=== PATIENT | female | born 1985 | race Caucasian/White ===

== ENCOUNTER 2017-06-14 17:34 | Observation (INO) ==
[2017-06-14 18:34] LABS: Basophils # 0.1 K/mcL (0.0-0.2); Basophils % 0.6 %; Hematocrit 43.6 % (35.3-44.9); Hemoglobin 14.4 g/dL (11.5-15.4); Immature Granulocytes % 0.6 % (0-4); Lymphocytes # 3.4 K/mcL (0.6-4.6); Lymphocytes % 40.6 %; Mean Corpuscular Hemoglobin 25.8 pg (28.0-33.3); Mean Corpuscular Volume 78.1 fL (83.0-100.0); Mean Platelet Volume 7.7 fL (9.4-12.4); Monocytes # 0.6 K/mcL (0.0-1.3); Monocytes % 7.2 %; Neutrophils # 4.2 K/mcL (1.6-8.9); Platelet Count 389 K/mcL (140-400); Red Blood Count 5.58 M/mcL (3.82-4.97); Red Cell Distribution Width 16.1 % (11.5-14.5)
--- NOTE | 2017-06-14 18:42 | Emergency Department Note ---
START Narrative - START START: This documentation is done with the assistance of Dragon dictation. Despite efforts made to ensure accuracy, there may be inaccuracies in superannuation clerk or spelling and typographical errors. Patient seen on initial evaluation with alteration in mental status. From this coming her said that patient's family parents over a year ago and patient could not remember that today. She denies any current drug use no trauma no strokelike symptoms. Were negative workup and then signed out to the evening ER physician for further management and evaluation.
[2017-06-14 18:56] LABS: Acetaminophen 12 mcg/mL (10-20); Alanine Aminotransferase 14 Units/L (7-52); Albumin 4.6 g/dL (3.5-5.7); Albumin/Globulin Ratio 1.6 (1.1-2.2); Alkaline Phosphatase 67 Units/L (34-104); Aspartate Amino Transferase 12 Units/L (13-39); BUN/Creatinine Ratio 12 (6-26); Bilirubin,Total 0.4 mg/dL (0.3-1.0); Blood Urea Nitrogen 10 mg/dL (6-20); Calcium 9.4 mg/dL (8.6-10.3); Carbon Dioxide 25 mEq/L (23-29); Chloride 103 mEq/L (98-107); Ethanol < 10 mg/dL (Less than 10); Globulin 2.8 g/dL (2.4-3.5); Glucose 138 mg/dL (70-105); Osmolality,Calculated 285 (280-300); Potassium 3.4 mEq/L (3.5-5.1); Salicylate < 2.5 mg/dL (15.0-30.0); Sodium 137 mEq/L (136-145); Total Protein 7.4 g/dL (6.4-8.9); eGFR For African Americans > 60 (> 60); eGFR For Non-African Americans > 60 (> 60)
--- NOTE | 2017-06-14 20:10 | Emergency Department Note ---
Disposition Clinical Impression: Weakness generalized Altered mental status Qualifiers: Altered mental status type: transient alteration of awareness Qualified Code(s) : R40.4 - Transient alteration of awareness Disposition: Admitted As Inpatient Condition: Good Time of Disposition: 23:10 General Adult HPI - General Chief complaint: ED Altered Mental Status Stated complaint: "lightheaded", ams Time Seen by Provider: 06/14/17 19:32 Source: patient Mode of arrival: ambulatory Limitations: altered mental status Nursing Notes Reviewed: Yes Vital Signs Reviewed: Yes - History of Present Illness HPI Narrative: 32-year-old female with significant past medical history of hypertension, depression, migraines presenting to the emergency department with chief complaint of altered mental status. According to the patient she has been feeling weak and off balance for the past week. She went to urgent care and was told she had fluid in her ears and given a prescription for amoxicillin. She states she still has not been feeling better. The past few days she got acutely worse with severe dizziness and weakness. She is also altered according to family member at bedside. Today she spoke to her family member and asked where her mother and father were even though her parents have been for over a year. Patient does state she feels dizzy and unsteady on her feet. She denies any fever, sick contacts, chest pain or shortness of breath. Pain Scale: 2 - Related Data Home Medications Medication Instructions Recorded Confirmed Cetirizine HCl [Zyrtec] 10 mg PO DAILY PRN 06/10/17 06/14/17 LORazepam [Ativan] 0.5 mg PO DAILY PRN 06/10/17 06/14/17 Losartan/Hydrochlorothiazide 1 each PO DAILY 06/10/17 06/14/17 [Losartan-Hctz 50-12.5 mg Tab] Quetiapine Fumarate [SEROquel] 100 mg PO DAILY 06/10/17 06/14/17 SUMAtriptan succinate [Imitrex] 50 mg PO PRN PRN MDD take one at 06/10/17 onset of migraine amLODIPine [Norvasc] 5 mg PO DAILY 06/10/17 06/14/17 Amitriptyline [Elavil] 25 mg PO HS 06/14/17 06/14/17 Amoxicillin [Amoxicillin] 875 mg PO BID 06/14/17 06/14/17 Ropinirole HCl [Requip] 2 mg PO HS 06/14/17 06/14/17 Sitagliptin Phosphate [Januvia] 50 mg PO DAILY 06/14/17 06/14/17 lamoTRIgine [Lamotrigine] 150 mg PO BID 06/14/17 06/14/17 Previous Rx's Medication Instructions Recorded Meclizine HCl [Verticalm] 25 mg PO TID PRN #30 tablet 06/10/17 Allergies Allergy/AdvReac Type Severity Reaction Status Date / Time No Known Allergies Allergy Verified 06/14/17 21:50 All systems ED: reviewed and negative except as stated. Neurological: Reports: weakness, confusion, vertigo Past Medical History - Past Medical History Attestation: Yes The following information was validated with the patient. 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 Absent: scleral icterus, conjunctival injection - ENT ENT exam: normal exam, mucous membranes moist - Neck Neck exam: Present: normal inspection, full ROM. Absent: tenderness, meningismus - Chest Chest inspection: Present: normal inspection, symmetric chest wall rise. Absent : tenderness, rash - Respiratory Respiratory exam: Present: normal lung sounds bilaterally. Absent: respiratory distress, wheezes - Cardiovascular Cardiovascular exam: Present: normal rhythm, tachycardia, normal heart sounds - Abdominal Exam Abdominal exam: Present: soft, Non-Tender. Absent: distention, guarding, rebound - Extremities Exam Extremities exam: Present: normal inspection, full ROM - Back Exam Back exam: Present: normal inspection. Absent: tenderness - Neurological Exam Neurological exam: Present: alert, oriented X3, CN II-XII intact, normal gait - Psychiatric Psychiatric exam: Present: normal affect, normal mood - Skin Skin exam: Present: warm, intact Course Course Narrative: 32-year-old female presenting to the emergency department for altered mental status and weakness. Patient was seen by the day team who start a preliminary imaging and labs. CT of the head showed 1. No acute intracranial abnormality. 2. Focal area of low attenuation within the right basal ganglia with ex vacuo dilatation of the frontal horn of the right lateral ventricle. This likely is related to prior trauma or ischemia/inflammation. Patient denies any recent trauma or previous head trauma. We will add a CTA of the head and neck. Patient's laboratory analysis within normal limits. We will also perform a lumbar puncture due to the CT abnormality. Patient is alert and oriented 3 in the room at this time. Stable vital signs. Disposition most likely admission but pending results. Patient agrees with this plan - Reevaluation(s) Reevaluation #1: Patient CTA of the head and neck within normal limits. LP attempted but unsuccessful. We spoke with interventional radiologist who agrees to complete the LP in the morning. We will start ceftriaxone, vancomycin and acyclovir at this time. Patient is alert and oriented 3 in the room with stable vital signs. Patient agrees with this plan. I spoke with the hospitalist on-call Dr. Mazariegos who agrees to accept the patient at this time. Vital Signs Temperature 97.7 F 06/14/17 17:57 Pulse Rate 108 06/14/17 17:57 Respiratory Rate 20 06/14/17 17:57 Blood Pressure 174/135 06/14/17 17:57 O2 Sat by Pulse Oximetry 100 06/14/17 17:57 Temperature 98.2 F 06/15/17 03:57 Pulse Rate 97 06/15/17 03:57 Respiratory Rate 14 06/15/17 03:57 Blood Pressure 143/89 06/15/17 03:57 O2 Sat by Pulse Oximetry 100 06/15/17 03:57 Oxygen Delivery Oxygen Delivery Room Air Medical Decision Making - Lab Data Result diagrams: 06/15/17 00:16 06/15/17 00:16 Lab Results 06/14/17 06/14/17 Range/Units 18:19 18:19 WBC 8.3 (4.3-11.1) K/mcL RBC 5.58 H (3.82-4.97) M/mcL Hgb 14.4 (11.5-15.4) g/dL Hct 43.6 (35.3-44.9) % MCV 78.1 L (83.0-100.0) fL MCH 25.8 L (28.0-33.3) pg MCHC 33.0 (31.6-35.5) g/dL RDW 16.1 H (11.5-14.5) % Plt Count 389 (140-400) K/mcL MPV 7.7 L (9.4-12.4) fL Immature Gran % 0.6 (0-4) % Seg Neutrophils % 51.0 % Lymphocytes % 40.6 % Monocytes % 7.2 % Eosinophils % 0.0 % Basophils % 0.6 % Neutrophils # 4.2 (1.6-8.9) K/mcL Lymphocytes # 3.4 (0.6-4.6) K/mcL Monocytes # 0.6 (0.0-1.3) K/mcL Eosinophils # 0.0 (0.0-0.6) K/mcL Basophils # 0.1 (0.0-0.2) K/mcL Sodium 137 (136-145) mEq/L Potassium 3.4 L (3.5-5.1) mEq/L Chloride 103 (98-107) mEq/L Carbon Dioxide 25 (23-29) mEq/L BUN 10 (6-20) mg/dL Creatinine 0.82 (0.60-1.20) mg/dL Est GFR ( Amer) > 60 (> 60) Est GFR (Non-Af Amer) > 60 (> 60) BUN/Creatinine Ratio 12 (6-26) Glucose 138 H (70-105) mg/dL Calculated Osmolality 285 (280-300) Calcium 9.4 (8.6-10.3) mg/dL Total Bilirubin 0.4 (0.3-1.0) mg/dL AST 12 L (13-39) Units/L ALT 14 (7-52) Units/L Alkaline Phosphatase 67 (34-104) Units/L Serum Total Protein 7.4 (6.4-8.9) g/dL Albumin 4.6 (3.5-5.7) g/dL Globulin 2.8 (2.4-3.5) g/dL Albumin/Globulin Ratio 1.6 (1.1-2.2) Salicylates < 2.5 L (15.0-30.0) mg/dL Acetaminophen 12 (10-20) mcg/mL Ethyl Alcohol < 10 (Less than 10) mg/dL - EKG Data EKG #1 EKG attestation: Yes I reviewed and interpreted this EKG. EKG results narrative: Sinus rhythm. 96 bpm. MI interval 148, QRS 97, QTC 431. No signs of acute ST segment elevation or ischemia. Attestation Statement - Attestation Attestation: I examined this patient and my medical decision-making was reviewed with the Resident Physician. I agree with the documented findings, disposition and treatment plan as described except to the extent set forth below. Possible inflammation on noncontrast head CT. Attempts at lumbar puncture were unsuccessful due to body habitus. Consult to admit interventional radiologist for lumbar puncture to rule out meningitis. The patient was started on ceftriaxone, vancomycin, acyclovir. Additionally CTA of the head shows no aneurysmal formation or bleeding. Patient be admitted the hospital for further evaluation of altered mental status and we will obtain an MRI as part of inpatient workup. Discussed case with hospitalist and they are agreeable to admission.
[2017-06-14] MEDS ORDERED: *HR* OxyCODONE/APAP 5/325 TABLET PO ONE (20:16)
[2017-06-14] MEDS ORDERED: diazePAM 10 MG TABLET PO ONE (20:16)
[2017-06-14] MEDS ORDERED: cefTRIAXone 2,000 MG in Water for inj. (sterile) 20 ML 20 ML IVP ONE (21:22)
[2017-06-14] MEDS ORDERED: Acyclovir 500 MG in D5% in Water 100 ML IVPB ONE (21:22)
--- NOTE | 2017-06-14 22:32 | Internal Med History&Physical ---
<Lisandra Duarte - Last Filed: 06/15/17 00:23> Date of Encounter: 06/15/17 Time of Encounter: 22:29 Assessment and Plan (1) Mental status alteration Current visit: Yes Status: Acute 32-year-old female with bipolar disorder, anxiety and history of otits media, presenting with transient alteration in awareness and fall x 2 Transient alteration in awareness with no neurological findings on exam, however inflammatory process cannot be ruled out at this time. LP in ED attempt unsuccessful Consults interventional radiology- Plan for LP tomorrow to rule out meningitis or noninfectious inflammation due to autoimmune process. ESR, CPR CBC, BMP in a.m. U tox pending Urinalysis pending Medication levels pending Cannot rule out opiates at this time, as UA and Utox pending. Naloxone 0.01 mg/ kg, As Needed Pt displaying no systemic signs, hemodynamically stable, will hold prophylactic antibiotics for possible infectious process until LP drawn tomorrow and re- assessment Continuous head of the bed elevation to 30 degrees Minimize disruption overnight to promote good sleep hygiene Qualifiers: Altered mental status type: transient alteration of awareness Qualified Code(s): R40.4 - Transient alteration of awareness (2) Hypertension Current visit: Yes Status: Acute Continue home medications. Hydralazine 5 mg q6h prn. Qualifiers: Hypertension type: essential hypertension Qualified Code(s): I10 - Essential (primary) hypertension (3) Depression Current visit: Yes Status: Acute Continue home medications. Qualifiers: Depression Type: major depressive disorder Major depression recurrence: recurrent Active/Remission status: currently active Major depression episode severity: unspecified Qualified Code(s): F33.9 - Major depressive disorder, recurrent, unspecified (4) Bipolar disorder Current visit: Yes Status: Acute Continue home Medications. Consult to psych Qualifiers: Active/Remission status: remission status unspecified Qualified Code(s): F31.9 - Bipolar disorder, unspecified (5) Type 2 diabetes mellitus Current visit: Yes Status: Acute Insulin sliding scale, will adjust as needed. Accu-Cheks every 6 and hypoglycemia protocol ordered Qualifiers: Diabetes mellitus die drawing checker insulin use: without mcfp use Diabetes mellitus complication status: with hyperglycemia Qualified Code(s): E11.65 - Type 2 diabetes mellitus with hyperglycemia (6) Migraines Current visit: Yes Status: Acute Patient on Imitrex at home, prn at onset of migraine. Will Continue as inpatient. Qualifiers: Migraine type: unspecified Status migrainosus presence: without status migrainosus Intractability: not intractable Qualified Code(s): G43.909 - Migraine, unspecified, not intractable, without status migrainosus (7) Anxiety Current visit: Yes Status: Acute OARRS reviewed on 06/15/17. Continue home medications. (8) DVT prophylaxis Current visit: Yes Status: Acute BECKY Score: 3 (possible acute infection, obesity with BMI over 30, undergoing hormonal treatment). Does not meet indication for pharmacological prophylaxis. We will consider using mechanical prophylaxis with EPCD Internal Medicine - H&P: HPI Chief complaint: AMS Admitted From: Home History of present illness: Ms. Arce is a 32 year old female hypertension, depression, migraines, history of eustachian tube dysfunction presenting to the emergency department with chief complaint of chronic fatigue and intermittent postural imbalance 2. She went to urgent care and was told she had fluid in her ears, treated with amoxicillin, which has not alleviated symptoms. She was urged by a friend to come to the emergency department after she asked of whereabouts of her mother and father, who have > 1 yr ago. When asked regarding this episode , patient states she just possibly was "confused" . She states this never happened to her before. 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 Patient states care-taking and subsequent mourning of family was emotionally taxing and states she feels "stressed". As patient was dressing for the emergency department, she fell on her buttocks without any prodromal symptoms. Denies loss of consciousness. Patient denies hitting her head. SHe states she had one prior episode of imbalance 3 days ago which prompted her to go to urgent care. Pt denies any fever, sick contacts, chest pain or shortness of breath. No abdominal pain. Pt denies any shock-line sensations down her back. Denies parathesias or numbness. Past Med Surg Social Fam HX - Past Medical History Medical history: diabetes, hypertension Psychiatric history: anxiety, bipolar, depression - Past Surgical History Surgical History: no surgical history - Social History Smoking Status: Never smoker Smokeless Tobacco Status: No Alcohol use: none Drug use: none - Family History Mother Living Status: Hx Family Cancer: Yes (Colon/rectal) Hx Family Endocrine Disorder: Yes (DM) Father Living Status: Age at : 63 Hx Family GI Disorders: Yes (DM) Internal Medicine - H&P: Meds Cetirizine HCl [Zyrtec] 10 mg PO DAILY PRN 06/10/17 [History] LORazepam [Ativan] 0.5 mg PO DAILY PRN 06/10/17 [History] Losartan/Hydrochlorothiazide [Losartan-Hctz 50-12.5 mg Tab] 1 each PO DAILY [History] Meclizine HCl [Verticalm] 25 mg PO TID PRN #30 tablet 06/10/17 [Rx] Quetiapine Fumarate [SEROquel] 100 mg PO DAILY 06/10/17 [History] SUMAtriptan succinate [Imitrex] 50 mg PO PRN PRN MDD take one at onset of migraine 06/10/17 [History] amLODIPine [Norvasc] 5 mg PO DAILY 06/10/17 [History] Amitriptyline [Elavil] 25 mg PO HS 06/14/17 [History] Amoxicillin [Amoxicillin] 875 mg PO BID 06/14/17 [History] Ropinirole HCl [Requip] 2 mg PO HS 06/14/17 [History] Sitagliptin Phosphate [Januvia] 50 mg PO DAILY 06/14/17 [History] lamoTRIgine [Lamotrigine] 150 mg PO BID 06/14/17 [History] 3 Allergy/AdvReac Type Severity Reaction Status Date / Time No Known Allergies Allergy Verified 06/14/17 21:50 All Systems PM: A 10-system review of systems was performed and is negative for pertinent findings except as documented above in the HPI. - Constitutional Constitutional: as per HPI - Cardiovascular Cardiovascular ROS IM: as per HPI - Respiratory Respiratory: as per HPI - Gastrointestinal Gastrointestinal: as per HPI - Constitutional Vitals: Temp Pulse Resp BP Pulse Ox 97.7 F 94 18 138/106 100 06/14/17 17:57 06/14/17 22:15 06/14/17 22:15 06/14/17 22:15 06/14/17 22:15 General appearance: Present: cooperative, A&O X 3, obese, answers questions appropriately Exam: Normal gait. - Head Head exam: Present: atraumatic, normocephalic - Neck Additional comments: Full Range of motion. No nuchal rigidity. No Brudzinski sign. No Kernig sign. - Respiratory Respiratory exam: Present: CTAB. Absent: accessory muscle use, chest wall tenderness - Cardiovascular Cardiovascular exam: Present: RRR, +S1, +S2 - GI/Abdominal GI/Abdominal exam: Present: normal bowel sounds, soft, no peritoneal signs. Absent: distended, rebound, rigid - Extremities Exam Extremities exam: Present: normal inspection. Absent: mottling, pedal edema, tenderness - Neurological Exam Neurological exam: Present: normal gait, reflexes normal (biceps, patelllar). Absent: pronater drift, facial droop, speech deficit Additional comments: Extraocular movements intact. No afferent pupillary defect. Symmetrical facial movement on smile Able to raise eyebrows symmetrically Able to provide cheeks with no issues. Hearing intact bilaterally on gross exam Midline tongue contusion Normal Shoulder shrug movement Negative Romberg sign. Rapid alternating movement intact. - Psychiatric Additional comments: Appearance- in Hospital down, adequate grooming. Behavior: Able to maintain eye contact in conversation. Able to follow commands. No stereotypical movements. Attitude: cooperative Level of consciousness: Alert, no fluctuations in awareness Speech and language: Talkative, with normal rate, no pressured speech, soft voice, rhythm with appropriately placed inflections with good articulation. Mood: "Comfortable" Affect: Appropriate to situation, blunted, Despondent on discussing her parent' s . Thought Process: Goal-directed thought. No tangential speech. Internal Med - H&P Results - Labs CBC & Chem 7: 06/14/17 18:19 06/14/17 18:19 - Impressions ITS Impressions Chest X-Ray 06/14/17 18:13 IMPRESSION: 1. No active pulmonary disease. D/ / Kaushik Hassan MD / Kaushik Hassan MD Interpreting Provider: Kaushik Hassan MD Head CT 06/14/17 18:13 IMPRESSION: 1. No acute intracranial abnormality. 2. Focal area of low attenuation within the right basal ganglia with ex vacuo dilatation of the frontal horn of the right lateral ventricle. This likely is related to prior trauma or ischemia/inflammation. D/ / Kaushik Hassan MD / Kaushik Hassan MD Interpreting Provider: Kaushik Hassan MD Head CTA 06/14/17 19:32 IMPRESSION: Normal CTA of the head and neck. D/ / Ankush Rodriguez / Ankush Rodriguez Interpreting Provider: Ankush Rodriguez Neck CTA 06/14/17 19:32 IMPRESSION: Normal CTA of the head and neck. D/ / Ankush Rodriguez / Ankush Rodriguez Interpreting Provider: Ankush Rodriguez <Kelly Ponce - Last Filed: 06/15/17 04:08> Date of Encounter: 06/14/17 Internal Medicine - H&P: HPI History of present illness: Ms. Arce is a 32 year old female All Systems PM: A 10-system review of systems was performed and is negative for pertinent findings except as documented above in the HPI. - Constitutional Vitals: Temp Pulse Resp BP Pulse Ox 98.0 F 98 15 152/104 100 06/14/17 23:38 06/14/17 23:38 06/14/17 23:38 06/14/17 23:38 06/14/17 23:38 Internal Med - H&P Results - Labs CBC & Chem 7: 06/15/17 00:16 06/15/17 00:16 Labs: Short CBC 06/15/17 Range/Units 00:16 WBC 9.1 (4.3-11.1) K/mcL Hgb 12.9 D (11.5-15.4) g/dL Hct 39.4 (35.3-44.9) % Plt Count 338 (140-400) K/mcL Neutrophils # 5.7 (1.6-8.9) K/mcL BMP 06/15/17 00:16 Sodium 134 L Potassium 3.4 L Chloride 103 Carbon Dioxide 25 BUN 9 Creatinine 0.80 Glucose 155 H Calcium 8.6 Urine 06/14/17 Range/Units 22:55 Urine Color Yellow (Yellow) Urine Clarity Clear (Clear) Urine pH 6.0 (5.0-8.0) pH Units Ur Specific [place] > 1.030 H (1.010-1.025) Urine Protein Negative (Neg-Trace) mg/dL Urine Glucose (UA) Normal (Normal) mg/dL - Attending Attestation I examined this patient and my medical decision-making was reviewed with the Resident Physician Dr. Duarte. I agree with the documented findings, disposition and treatment plan as described except to the extent set forth below. Ms. Arce is a 32 year old female hypertension, depression, migraines and Bipolar who follows with psychiatrist regularly now she was brought into ER by family stating pt does have some altered mental status. Pt was recently diagnosed with otitis media and taking oral abx Amoxicillin. When I examined the pt she is alert, awake and O x 3. Not confused. Gen: A, A, O x 3 Chest: Diminished BS b/l No crackles Heart : S1S2+ RRR No murmurs Neuro: CNS2-12+, No focal neuro deficits noticed a/p 1. Acute delirium With recent otitis media, and current sudden onset AMS, defensively alarming for encephalitis vs meningitis She does not have any physical signs of meningitis - very unlikely it's meningitis In the ER they tried to do LP, which was unsuccesful she was give prophylactic abx Vancomycin, Rocephin and Acyclovir Her WBC - WNL, afebrile and pt does not look toxic or sick So at this point will hold any abx rx until she gets LP done in AM by IR Will check ESR and CRP, if they are critically high will consider treating her with IV abx now Also concerned about psych component for her altered mental status.
[2017-06-14 23:05] LABS: Bilirubin,Urine Negative (Negative); Blood,Urine Moderate (Negative); Clarity,Urine Clear (Clear); Color,Urine Yellow (Yellow); Glucose,Urine (UA) Normal (Normal); Ketones,Urine Negative (Negative); Leukocyte Esterase,Urine Negative (Negative); Nitrite,Urine Negative (Negative); Protein,Urine Negative (Neg-Trace); Specific Gravity,Urine > 1.030 (1.010-1.025); Urobilinogen,Urine Normal (Normal)
[2017-06-14 23:10] LABS: Bacteria,Urine None Seen per hpf (None-Few); RBC,Urine 0-3 per hpf (0-3); Squamous Epithelial Cell,Urine Many per lpf (None-Few); WBC,Urine 0-3 per hpf (0-3)
[2017-06-14 23:31] LABS: Hyaline Casts,Urine Few per lpf (None-Few)
[2017-06-14] MEDS ORDERED: Loratadine 10 MG TABLET PO PRN (23:55)
[2017-06-14] MEDS ORDERED: *HR* LORazepam 0.5 MG TABLET PO PRN (23:55)
[2017-06-14] MEDS ORDERED: SUMAtriptan succinate 50 MG TABLET PO PRN (23:55)
[2017-06-14] MEDS ORDERED: Naloxone 0.4 MG/ML INJ IVP PRN (23:58)
[2017-06-15] MEDS ORDERED: D5% in Water 1,000 ML IVC PRN (00:28)
[2017-06-15] MEDS ORDERED: Dextrose Gel 15 GM/37.5 ML TUBE PO PRN ×2 (00:28)
[2017-06-15] MEDS ORDERED: *HR* Dextrose 50 % in Water (Syg) 50 ML SYRINGE IVP PRN (00:28)
[2017-06-15 00:41] LABS: Basophils % 0.4 %; Hematocrit 39.4 % (35.3-44.9); Hemoglobin 12.9 g/dL (11.5-15.4); Immature Granulocytes % 0.3 % (0-4); Lymphocytes # 2.8 K/mcL (0.6-4.6); Lymphocytes % 30.2 %; Mean Corpuscular HGB Conc 32.7 g/dL (31.6-35.5); Mean Corpuscular Hemoglobin 25.7 pg (28.0-33.3); Mean Corpuscular Volume 78.5 fL (83.0-100.0); Mean Platelet Volume 7.8 fL (9.4-12.4); Monocytes # 0.6 K/mcL (0.0-1.3); Monocytes % 6.5 %; Neutrophils # 5.7 K/mcL (1.6-8.9); Platelet Count 338 K/mcL (140-400); Red Blood Count 5.02 M/mcL (3.82-4.97); Red Cell Distribution Width 16.2 % (11.5-14.5); Segmented Neutrophils % 62.6 %
[2017-06-15 00:48] LABS: BUN/Creatinine Ratio 11 (6-26); Blood Urea Nitrogen 9 mg/dL (6-20); Calcium 8.6 mg/dL (8.6-10.3); Carbon Dioxide 25 mEq/L (23-29); Chloride 103 mEq/L (98-107); Glucose 155 mg/dL (70-105); Osmolality,Calculated 280 (280-300); Potassium 3.4 mEq/L (3.5-5.1); Sodium 134 mEq/L (136-145); eGFR For African Americans > 60 (> 60); eGFR For Non-African Americans > 60 (> 60)
[2017-06-15] MEDS: rOPINIRole 1 MG TABLET PO SCH ×2 (01:06→20:20)
[2017-06-15] MEDS: Losartan/HCTZ 50-12.5 TABLET PO SCH ×2 (01:06→08:47)
[2017-06-15] MEDS: lamoTRIgine 100 MG TABLET PO SCH ×3 (01:07→20:20)
[2017-06-15 01:33] LABS: Amphetamine Screen,Urine Negative ng/mL (Cutoff=1000); Barbiturate Screen,Urine Negative ng/mL (Cutoff=200); Benzodiazepines Screen,Urine Positive ng/mL (Cutoff=200); Cannabinoid Screen,Urine Negative ng/mL (Cutoff = 50); Cocaine Screen,Urine Negative ng/mL (Cutoff= 300); Opiate Screen,Urine Negative ng/mL (Cutoff=300); Phencyclidine Screen,Urine Negative ng/mL (Cutoff=25)
[2017-06-15] MEDS: Insulin LISPRO 300 UNITS/3 ML VIAL SQ SCH ×3 (08:45→16:45)
[2017-06-15] MEDS: amLODIPine 5 MG TABLET PO SCH (08:46)
--- NOTE | 2017-06-15 12:41 | Consult Note ---
Date of Encounter: 06/15/17 Time of Encounter: 11:30 Assessment & Recommendation (1) Bipolar disorder Current visit: Yes Status: Chronic Assessment & Recommendation: Patient alert and oriented during this interview. She does not remember exact timing of memory issues or when her gait disturbance started but she thinks it was about 2 weeks ago. Currently mood is fairly stable and she feels psych meds are helpful. She does not think counseling is effective for her and would like to switch counselors. With patient's permission, appointment was made for her June 28 at 2 PM with Madison Arauz at the [facility]. At this point, would recommend avoiding psych med changes as patient reports they are helpful and we do not want to exacerbate any underlying medical issues. She does not require inpatient psychiatric stabilization at this time. Recommend follow-up outpatient and she should attend new counseling appointment as above. Qualifiers: Active/Remission status: remission status unspecified Qualified Code(s): F31.9 - Bipolar disorder, unspecified (2) Anxiety Current visit: Yes Status: Chronic Assessment & Recommendation: Continue current medications. History of Present Illness Patient: new to practice Requesting Physician: Celestine Reza MD Reason for consult: Mental status changes, history of bipolar disorder History of present illness: Ms. Arce is a 32 year old female with a reported history of bipolar disorder and anxiety who presented to the hospital with increasing confusion and difficulty walking. Patient states that she has noticed difficulty with her memory the past couple of weeks which has worsened to the point where her friend actually insisted on bringing her to the hospital. She is not aware of anything specific happening or head injury occurring 2 weeks ago. She states she does have a lot of life stressors. She used to work at [email or web address] but had to quit because the hours were messing up her sleep schedule. She currently lives on her own and within the last year both of her parents have . 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 Father more recently of complications of his diabetes. Patient states that she does get irritable and depressed at times but she does feel that her psych meds help her. She denies current issues with psych meds. She denies auditory or visual hallucinations. She denies grandiosity, decreased need for sleep or impulsivity. She denies obsessions, delusions, paranoia. She denies suicidal or homicidal ideation, intent, or plan. Patient is able to verbalize what meds she is taking to this provider and knows what they are for. She states that her current counselor cannot see her very frequently and she is interested in switching to the [facility] for therapy. CC: Celestine Reza MD Past Med Surg Social Fam HX - Past Medical History Medical history: diabetes, hypertension - Past Psychiatric History Psychiatric history: Denies: prior suicide attempt, previous psychiatric hospitalization Past psychiatric history details: No previous psychiatric hospitalizations. Denies any suicide attempts. She has a lot of long-standing outpatient treatment for bipolar depression and anxiety. Family psychiatric history: Yes Family Psychiatric History Details: Mom had major depressive disorder. Family History of Suicide: None - Past Surgical History Surgical History: no surgical history - Social History Smoking Status: Never smoker Smokeless Tobacco Status: No Alcohol use: none Drug use: none - Family History Mother Living Status: Hx Family Cancer: Yes (Colon/rectal) Hx Family Endocrine Disorder: Yes (DM) Father Living Status: Age at : 63 Hx Family GI Disorders: Yes (DM) Medications & Allergies Cetirizine HCl [Zyrtec] 10 mg PO DAILY PRN 06/10/17 [History] LORazepam [Ativan] 0.5 mg PO DAILY PRN 06/10/17 [History] Losartan/Hydrochlorothiazide [Losartan-Hctz 50-12.5 mg Tab] 1 each PO DAILY [History] Meclizine HCl [Verticalm] 25 mg PO TID PRN #30 tablet 06/10/17 [Rx] Quetiapine Fumarate [SEROquel] 100 mg PO DAILY 06/10/17 [History] SUMAtriptan succinate [Imitrex] 50 mg PO PRN PRN MDD take one at onset of migraine 06/10/17 [History] amLODIPine [Norvasc] 5 mg PO DAILY 06/10/17 [History] Amitriptyline [Elavil] 25 mg PO HS 06/14/17 [History] Amoxicillin [Amoxicillin] 875 mg PO BID 06/14/17 [History] Ropinirole HCl [Requip] 2 mg PO HS 06/14/17 [History] Sitagliptin Phosphate [Januvia] 50 mg PO DAILY 06/14/17 [History] lamoTRIgine [Lamotrigine] 150 mg PO BID 06/14/17 [History] ARIPiprazole [Abilify] 10 mg PO DAILY 06/15/17 [History] Glimepiride [Amaryl] 2 mg PO DAILY 06/15/17 [History] HydrOXYzine Pamoate [Vistaril] 50 mg PO QID PRN 06/15/17 [History] Sertraline [Zoloft] 150 mg PO DAILY 06/15/17 [History] 3 Allergy/AdvReac Type Severity Reaction Status Date / Time No Known Allergies Allergy Verified 06/14/17 21:50 Review of Systems Constitutional: Denies: fever, chills, weakness, weight change Eyes: Denies: eye pain, vision change Ears, Nose, Throat: Denies: ear pain, throat pain, dental pain, hearing loss, congestion Cardiovascular: Denies: chest pain, palpitations, dyspnea on exertion Respiratory: Denies: cough, dyspnea, wheezes Gastrointestinal: Denies: abdominal pain, nausea, vomiting, diarrhea, constipation Genitourinary female: Denies: urgency, dysuria, frequency, abnormal menses, dyspareunia Musculoskeletal: Denies: joint swelling, joint pain Integumentary: Denies: rash, lesions, pruritus Neurological: Reports: headache, confusion, abnormal gait, vertigo Psychiatric: Reports: depression, anxiety, abnormal sleep pattern, confusion, memory loss, irritability. Denies: suicidal ideation Endocrine: Denies: fatigue, heat or cold intolerance Hematologic/Lymphatic: Denies: easy bruising, lymphadenopathy Allergic/Immunologic: Denies: urticaria, itchy eyes Psychiatry Exam - Constitutional Vitals: Temp Pulse Resp BP Pulse Ox 98.0 F 103 16 132/92 98 06/15/17 11:23 06/15/17 11:23 06/15/17 11:23 06/15/17 11:23 06/15/17 11:23 General appearance: age & developmentally appropriate, well-groomed, well- nourished - Musculoskeletal Gait: other (Patient lying in bed) Station: relaxed Strength & Tone: normal for patient - Psychiatric Patient Orientation: Yes Person, Yes Time, Yes Place, Yes Circumstance Level of alertness: Alert Behavior: calm, cooperative Psychomotor activity: Normal Eye Contact: Maintains Eye Contact Mood Description: Euthymic/stable Affect description: congruent with mood, full range Speech Volume: Normal Speech pattern: normal rate, normal rhythm, normal tone Language & Vocabulary: consistent with education Thought Process: Intact, Logical, Linear Thought Content: Yes Intact, No Suicidal ideation, No Homicidal ideation Perceptual Disturbances: No Auditory hallucinations, No Visual hallucinations Attention Span Ability: Capable of Focused Attention Memory Description: Grossly Intact Patient Reliability: Reliable Historian Fund of knowledge: Yes abstraction ability, Yes aware of current events Intelligence Estimate: Average Judgment: Fair Insight: Partial Results - Drug Levels and Toxicology Drug Levels and Toxicology: Drug Levels and Toxicity 06/14/17 22:55 Urine Opiates Screen Negative Ur Barbiturates Screen Negative Ur Phencyclidine Scrn Negative Ur Amphetamines Screen Negative U Benzodiazepines Scrn Positive H Urine Cocaine Screen Negative U Marijuana (THC) Screen Negative - Labs Labs: Laboratory Last Values WBC 9.1 K/mcL (4.3-11.1) 06/15/17 00:16 RBC 5.02 M/mcL (3.82-4.97) H 06/15/17 00:16 Hgb 12.9 g/dL (11.5-15.4) D 06/15/17 00:16 Hct 39.4 % (35.3-44.9) 06/15/17 00:16 MCV 78.5 fL (83.0-100.0) L 06/15/17 00:16 MCH 25.7 pg (28.0-33.3) L 06/15/17 00:16 MCHC 32.7 g/dL (31.6-35.5) 06/15/17 00:16 RDW 16.2 % (11.5-14.5) H 06/15/17 00:16 Plt Count 338 K/mcL (140-400) 06/15/17 00:16 MPV 7.8 fL (9.4-12.4) L 06/15/17 00:16 Immature Gran % 0.3 % (0-4) 06/15/17 00:16 Seg Neutrophils % 62.6 % 06/15/17 00:16 Lymphocytes % 30.2 % 06/15/17 00:16 Monocytes % 6.5 % 06/15/17 00:16 Eosinophils % 0.0 % 06/15/17 00:16 Basophils % 0.4 % 06/15/17 00:16 Neutrophils # 5.7 K/mcL (1.6-8.9) 06/15/17 00:16 Lymphocytes # 2.8 K/mcL (0.6-4.6) 06/15/17 00:16 Monocytes # 0.6 K/mcL (0.0-1.3) 06/15/17 00:16 Eosinophils # 0.0 K/mcL (0.0-0.6) 06/15/17 00:16 Basophils # 0.0 K/mcL (0.0-0.2) 06/15/17 00:16 ESR 5 mm/hr (0-15) 06/15/17 05:27 Sodium 134 mEq/L (136-145) L 06/15/17 00:16 Potassium 3.4 mEq/L (3.5-5.1) L 06/15/17 00:16 Chloride 103 mEq/L (98-107) 06/15/17 00:16 Carbon Dioxide 25 mEq/L (23-29) 06/15/17 00:16 BUN 9 mg/dL (6-20) 06/15/17 00:16 Creatinine 0.80 mg/dL (0.60-1.20) 06/15/17 00:16 Est GFR ( Amer) > 60 (> 60) 06/15/17 00:16 Est GFR (Non-Af Amer) > 60 (> 60) 06/15/17 00:16 BUN/Creatinine Ratio 11 (6-26) 06/15/17 00:16 Glucose 155 mg/dL (70-105) H 06/15/17 00:16 POC Glucose 118 mg/dL (58-89) H 06/15/17 07:52 Calculated Osmolality 280 (280-300) 06/15/17 00:16 Lactic Acid 1.5 mmol/L (0.5-2.2) 06/15/17 00:16 Calcium 8.6 mg/dL (8.6-10.3) 06/15/17 00:16 Total Bilirubin 0.4 mg/dL (0.3-1.0) 06/14/17 18:19 AST 12 Units/L (13-39) L 06/14/17 18:19 ALT 14 Units/L (7-52) 06/14/17 18:19 Alkaline Phosphatase 67 Units/L (34-104) 06/14/17 18:19 C-Reactive Protein < 5 mg/L (Less than 10) 06/15/17 05:27 Serum Total Protein 7.4 g/dL (6.4-8.9) 06/14/17 18:19 Albumin 4.6 g/dL (3.5-5.7) 06/14/17 18: Globulin 2.8 g/dL (2.4-3.5) 06/14/17 18:19 Albumin/Globulin Ratio 1.6 (1.1-2.2) 06/14/17 18:19 Urine Color Yellow (Yellow) 06/14/17 22:55 Urine Clarity Clear (Clear) 06/14/17 22:55 Urine pH 6.0 pH Units (5.0-8.0) 06/14/17 22:55 Ur Specific [place] > 1.030 (1.010-1.025) H 06/14/17 22:55 Urine Protein Negative mg/dL (Neg-Trace) 06/14/17 22:55 Urine Glucose (UA) Normal mg/dL (Normal) 06/14/17 22:55 Urine Ketones Negative mg/dL (Negative) 06/14/17 22:55 Urine Blood Moderate (Negative) H 06/14/17 22:55 Urine Nitrite Negative (Negative) 06/14/17 22:55 Urine Bilirubin Negative (Negative) 06/14/17 22:55 Urine Urobilinogen Normal mg/dL (Normal) 06/14/17 22:55 Ur Leukocyte Esterase Negative (Negative) 06/14/17 22:55 Urine Microscopic RBC 0-3 per hpf (0-3) 06/14/17 22:55 Urine Microscopic WBC 0-3 per hpf (0-3) 06/14/17 22:55 Ur Squamous Epith Cells Many per lpf (None-Few) H 06/14/17 22:55 Urine Bacteria None Seen per hpf (None-Few) 06/14/17 22:55 Hyaline Casts Few per lpf (None-Few) 06/14/17 22:55 Ur Culture Indicated? NO (NO) 06/14/17 22:55 Urine Test Negative (Negative) 06/14/17 22:55 Salicylates < 2.5 mg/dL (15.0-30.0) L 04/02/18 18:19 Urine Opiates Screen Negative ng/mL (Kjbywy=273) 06/14/17 22:55 Acetaminophen 12 mcg/mL (10-20) 06/14/17 18:19 Ur Barbiturates Screen Negative ng/mL (Fmnaty=214) 06/14/17 22:55 Ur Phencyclidine Scrn Negative ng/mL (Cutoff=25) 06/14/17 22:55 Ur Amphetamines Screen Negative ng/mL (Ldbzqt=8049) 06/14/17 22:55 U Benzodiazepines Scrn Positive ng/mL (Ngvnsg=564) H 06/14/17 22:55 Urine Cocaine Screen Negative ng/mL (Cutoff= 300) 06/14/17 22:55 U Marijuana (THC) Screen Negative ng/mL (Cutoff = 50) 06/14/17 22:55 Ethyl Alcohol < 10 mg/dL (Less than 10) 06/14/17 18:19 Consult Discharge Plan - Plan Referrals: Abraham Dennis MD [Primary Care Provider] -
--- NOTE | 2017-06-15 13:55 | Internal Med Progress Note ---
Date of Encounter: 06/15/17 Time of Encounter: 13:55 - Assessment and plan (1) DVT prophylaxis Current Visit: Yes Status: Acute Assessment and plan: Heparin SQ (2) Depression Current Visit: Yes Status: Chronic Assessment and plan: continue home meds Qualifiers: Depression Type: major depressive disorder Major depression recurrence: recurrent Active/Remission status: currently active Major depression episode severity: unspecified Qualified Code(s): F33.9 - Major depressive disorder, recurrent, unspecified (3) Hypertension Current Visit: Yes Status: Chronic Assessment and plan: Continue home meds, hydralazine prn Qualifiers: Hypertension type: essential hypertension Qualified Code(s): I10 - Essential (primary) hypertension (4) Mental status alteration Current Visit: Yes Status: Acute Assessment and plan: unwitnessed patient reports she was calling on her parents that have since demised CBC, ESR, Head CT unremarkable for acute events Utox with benzo-patient is on ativan at home UA is unremarkable Lumbar puncture is pending, follow reports Qualifiers: Altered mental status type: transient alteration of awareness Qualified Code(s): R40.4 - Transient alteration of awareness (5) Migraines Current Visit: Yes Status: Chronic Assessment and plan: tylenol prn Continue home meds Qualifiers: Migraine type: unspecified Status migrainosus presence: without status migrainosus Intractability: not intractable Qualified Code(s): G43.909 - Migraine, unspecified, not intractable, without status migrainosus (6) Type 2 diabetes mellitus Current Visit: Yes Status: Chronic Assessment and plan: FS ACHS Continue insulin regimen Qualifiers: Diabetes mellitus terminal worker insulin use: without care home use Diabetes mellitus complication status: with hyperglycemia Qualified Code(s): E11.65 - Type 2 diabetes mellitus with hyperglycemia (7) Anxiety Current Visit: Yes Status: Chronic Assessment and plan: continue home meds (8) Bipolar disorder Current Visit: Yes Status: Chronic Assessment and plan: psych eval noted, continue home meds Qualifiers: Active/Remission status: remission status unspecified Qualified Code(s): F31.9 - Bipolar disorder, unspecified (9) Weakness generalized Current Visit: Yes Status: Acute Assessment and plan: with recurrent falls PT eval (10) Obesity Current Visit: Yes Status: Chronic Assessment and plan: lifestyle modification Qualifiers: Obesity type: unspecified obesity type Obesity classification: adult class 2 (BMI 35 - 39.9) Serious obesity comorbidity presence: without serious comorbidity Body mass index: BMI 35.0-35.9 Qualified Code(s): E66.9 - Obesity, unspecified; Z68.35 - Body mass index (BMI) 35.0-35.9, adult; Z68.35 - Body mass index (BMI) 35.0-35.9, adult - Time Spent With Patient Total time spent is greater than 50% in coordination of care (as documented) at patient's floor/unit and/or counseling patient: - Subjective Interval history: Seen and examined at bedside Also reports recurrent falls, anand consult PT She is awaiting LP, and requesting to be discharged home afterwards No new complains Psych eval noted - Constitutional Vitals: Temp Pulse Resp BP Pulse Ox 98.0 F 103 16 132/92 98 06/15/17 11:23 06/15/17 11:23 06/15/17 11:23 06/15/17 11:23 06/15/17 11:23 General appearance: Present: cooperative, A&O X 3, no acute distress, obese, answers questions appropriately - Head Head exam: Present: atraumatic, normocephalic - Eye Eye exam: Present: PERRL, conjuntiva pink, sclera anicteric Pupils: Present: PERRL - Neck Neck exam general surgery: Present: supple, trachea midline. Absent: lymphadenopathy - Respiratory Respiratory exam: Present: CTAB. Absent: accessory muscle use, rales, rhonchi, wheezes - Cardiovascular Cardiovascular exam: Present: RRR, +S1, +S2. Absent: diastolic murmur, gallop, rubs, systolic murmur - GI/Abdominal GI/Abdominal exam: Present: normal bowel sounds, soft, no peritoneal signs. Absent: distended, tenderness - Extremities Exam Extremities exam: Present: warm, radial pulses palpable and symmetrical. Absent : calf tenderness, cyanotic, pedal edema - Neurological Exam Neurological exam: Present: alert, CN II-XII intact, oriented X3, no focal deficits. Absent: pronater drift, facial droop, speech deficit - Psychiatric Psychiatric exam: Present: normal mood - Skin Skin exam: Present: dry, intact Internal Medicine: Result - Labs CBC & Chem 7: 06/15/17 00:16 06/15/17 00:16 Labs: Short CBC 06/15/17 Range/Units 00:16 WBC 9.1 (4.3-11.1) K/mcL Hgb 12.9 D (11.5-15.4) g/dL Hct 39.4 (35.3-44.9) % Plt Count 338 (140-400) K/mcL Neutrophils # 5.7 (1.6-8.9) K/mcL BMP 06/15/17 00:16 Sodium 134 L Potassium 3.4 L Chloride 103 Carbon Dioxide 25 BUN 9 Creatinine 0.80 Glucose 155 H Calcium 8.6 Urine 06/14/17 Range/Units 22:55 Urine Color Yellow (Yellow) Urine Clarity Clear (Clear) Urine pH 6.0 (5.0-8.0) pH Units Ur Specific [place] > 1.030 H (1.010-1.025) Urine Protein Negative (Neg-Trace) mg/dL Urine Glucose (UA) Normal (Normal) mg/dL Consult Discharge Plan - Plan Referrals: Abraham Dennis MD [Primary Care Provider] -
[2017-06-15] MEDS ORDERED: hydrOXYzine pamoate 25 MG CAPSULE PO PRN (15:27)
[2017-06-15 17:49] LABS: Red Blood Cell,CSF < 0.002 M/mcL
[2017-06-15 17:52] LABS: Appearance,CSF Clear (Clear); Glucose,CSF 89 mg/dL (40-70)
--- NOTE | 2017-06-15 19:34 | Electrocardiograph Report ---
[address] [place], [place] [address] Test Date: 2017-06-14 Pat Name: Radha Arce Department: 103 Room: 3A Gender: F Integrity Director: LRCodey : 1985 Requested By: Tremayne Yan Order Number: [id number] Reading MD: Amilcar Jackson Measurements Intervals [place] Rate: 96 P: 31 NC: 148 QRS: 35 QRSD: 97 T: 20 QT: 378 QTc: 431 Interpretive Statements SINUS RHYTHM Electronically Signed On 06-15-2017 19:32:53 EDT by Amilcar Jackson
[2017-06-16] MEDS: lamoTRIgine 100 MG TABLET PO SCH (08:07)
[2017-06-16] MEDS: Insulin LISPRO 300 UNITS/3 ML VIAL SQ SCH (08:07)
[2017-06-16] MEDS: Losartan/HCTZ 50-12.5 TABLET PO SCH (08:07)
[2017-06-16] MEDS ORDERED: ARIPiprazole 10 MG TABLET PO SCH (09:00)
[2017-06-16] MEDS ORDERED: amLODIPine 5 MG TABLET PO SCH ×2 (09:00)
[2017-06-16 10:36] VITALS: BP 118/82
--- NOTE | 2017-06-16 10:38 | Discharge Summary ---
- NOTES TO OUTPATIENT PROVIDER Notes to Outpatient Provider: Patient was admitted for episode of altered mental status and recurrent falls. There is a transient alteration in menal status with no neurologic findings on exam. Infectious and inflammatory process was ruled out as CBC, ESR, CPR, urinalysis, chest x-ray, lumbar punctures was negative. Her blood pressure was uncontrolled and her amlodipine has been increased to 10 mg daily. 5 mg daily. The patient could not await Physical therapy evaluation as she has an appointment with the primary care physician. I recommend that she be referred to physical therapy as outpatient. Orders not resulted at time of discharge: Pending orders 06/15/17 05:27 [place] AM 0400 Date of Encounter: 06/16/17 Time of Encounter: 10:34 - Discharge Diagnosis (1) DVT prophylaxis Priority: Primary Status: Resolved (2) Depression Priority: Secondary Status: Chronic Qualifiers: Depression Type: major depressive disorder Major depression recurrence: recurrent Active/Remission status: remission status unspecified Qualified Code(s): F33.9 - Major depressive disorder, recurrent, unspecified (3) Hypertension Priority: Secondary Status: Chronic Qualifiers: Hypertension type: essential hypertension Qualified Code(s): I10 - Essential (primary) hypertension (4) Mental status alteration Priority: Primary Status: Resolved Qualifiers: Altered mental status type: transient alteration of awareness Qualified Code(s): R40.4 - Transient alteration of awareness (5) Migraines Priority: Secondary Status: Chronic Qualifiers: Migraine type: without aura Status migrainosus presence: without status migrainosus Intractability: not intractable Qualified Code(s): G43.009 - Migraine without aura, not intractable, without status migrainosus (6) Type 2 diabetes mellitus Priority: Secondary Status: Chronic Qualifiers: Diabetes mellitus snf insulin use: without snf use Diabetes mellitus complication status: with hyperglycemia Qualified Code(s): E11.65 - Type 2 diabetes mellitus with hyperglycemia (7) Anxiety Priority: Secondary Status: Chronic (8) Bipolar disorder Priority: Secondary Status: Chronic Qualifiers: Active/Remission status: remission status unspecified Qualified Code(s): F31.9 - Bipolar disorder, unspecified (9) Weakness generalized Priority: Secondary Status: Acute (10) Obesity Priority: Secondary Status: Chronic Qualifiers: Obesity type: unspecified obesity type Obesity classification: adult class 2 (BMI 35 - 39.9) Serious obesity comorbidity presence: without serious comorbidity Body mass index: BMI 35.0-35.9 Qualified Code(s): E66.9 - Obesity, unspecified; Z68.35 - Body mass index (BMI) 35.0-35.9, adult; Z68.35 - Body mass index (BMI) 35.0-35.9, adult Hospital course: Ms. Arce is a 32 year old female with bipolar disorder, depression, anxiety HTN , DM< HLD, morbid obesity Patient was admitted for episode of altered mental status and recurrent falls. There is a transient alteration in menal status with no neurologic findings on exam. Infectious and inflammatory process was ruled out as CBC, ESR, CPR, urinalysis, chest x-ray, lumbar punctures was negative. Her blood pressure was uncontrolled and her amlodipine has been increased to 10 mg daily. 5 mg daily. The patient could not await Physical therapy evaluation as she has an appointment with the primary care physician. I recommend that she be referred to physical therapy as outpatient. Psychaitry eval in-patient recommended continuation of her psych medications with appropriate follow up She is medically stable to be discharged home , she has an apppointment with her PCP this afternoon at 1.00 pm Discharge discussed with: patient, nurse, case management - Time Spent with Patient Total time spent providing and/or coordinating discharge services: Less than 30 minutes - Discharge Medications Prescriptions: Amlodipine Besylate 10 mg PO DAILY #30 tablet Home Medications: Cetirizine HCl [Zyrtec] 10 mg PO DAILY PRN 06/10/17 [History] LORazepam [Ativan] 0.5 mg PO DAILY PRN 06/10/17 [History] Losartan/Hydrochlorothiazide [Losartan-Hctz 50-12.5 mg Tab] 1 each PO DAILY [History] Meclizine HCl [Verticalm] 25 mg PO TID PRN #30 tablet 06/10/17 [Rx] Quetiapine Fumarate [Seroquel] 100 mg PO DAILY 06/10/17 [History] SUMAtriptan succinate [Imitrex] 50 mg PO PRN PRN MDD take one at onset of migraine 06/10/17 [History] Amitriptyline [Elavil] 25 mg PO HS 06/14/17 [History] Amoxicillin 875 mg PO BID 06/14/17 [History] Ropinirole HCl [Requip] 2 mg PO HS 06/14/17 [History] Sitagliptin Phosphate [Januvia] 50 mg PO DAILY 06/14/17 [History] lamoTRIgine [Lamotrigine] 150 mg PO BID 06/14/17 [History] ARIPiprazole [Abilify] 10 mg PO DAILY 06/15/17 [History] Glimepiride [Amaryl] 2 mg PO DAILY 06/15/17 [History] HydrOXYzine Pamoate [Vistaril] 50 mg PO QID PRN 06/15/17 [History] Sertraline [Zoloft] 150 mg PO DAILY 06/15/17 [History] Amlodipine Besylate 10 mg PO DAILY #30 tablet 06/16/17 [Rx] Allergies/Adverse Reactions: 3 Allergy/AdvReac Type Severity Reaction Status Date / Time No Known Allergies Allergy Verified 06/14/17 21:50 Date of admission: 06/14/17 22:06 Primary care physician: Abraham Dennis MD Consults: 06/15/17 00:29 Consult to Psychiatry [CONS] Routine Consulting Provider: Psych[facility] [place] Reason for Consult: Bipolar Disorder, with transient confusion Call Completed: No 06/15/17 14:30 Consult to Physical Therapy [CONS] Routine Comment: Evaluate, develop and implement POC Reason for Consult: Rcurrent falls Does patient have active BEDREST order?: No Is patient medically & hemodynamically stable?: Yes Discharging clinician: Celestine Reza Anticipated date of discharge: 06/16/17 - Constitutional Vitals: Temp Pulse Resp BP Pulse Ox 97.9 F 98 15 100/64 98 06/16/17 07:03 06/16/17 07:03 06/16/17 07:03 06/16/17 07:03 06/16/17 08:00 General appearance: Present: cooperative, A&O X 3, no acute distress, obese, answers questions appropriately - Head Head exam: Present: atraumatic, normocephalic - Eye Eye exam: Present: PERRL, conjuntiva pink, sclera anicteric Pupils: Present: PERRL - Neck Neck exam general surgery: Present: supple, trachea midline. Absent: lymphadenopathy - Respiratory Respiratory exam: Present: CTAB. Absent: accessory muscle use, rales, rhonchi, wheezes - Cardiovascular Cardiovascular exam: Present: RRR, +S1, +S2. Absent: diastolic murmur, gallop, rubs, systolic murmur - GI/Abdominal GI/Abdominal exam: Present: normal bowel sounds, soft, no peritoneal signs. Absent: distended, tenderness - Extremities Exam Extremities exam: Present: warm, radial pulses palpable and symmetrical. Absent : calf tenderness, cyanotic, pedal edema - Neurological Exam Neurological exam: Present: alert, CN II-XII intact, oriented X3, no focal deficits. Absent: pronater drift, facial droop, speech deficit - Skin Skin exam: Present: dry, intact - Patient Status Disposition: Home, Self-Care Condition: Good Functional capacity at discharge: independent ambulation Overall status at discharge: patient is progressing back to baseline - Discharge Instructions Follow Up With: Abraham Dennis MD [Primary Care Provider] - - Diet and Activity Activity: resume usual activities as tolerated Diet: diabetic diet, low fat, low cholesterol, low salt diet
[2017-06-21 07:38] LABS: HSV 1 Glycoprotein G IgG CSF 0.02 IV (<=0.89)
== END 2017-06-16 11:22 | disposition home or self-care (01) ==
LOC: EMEROO 17:34 → 3ANU 17:34 → SUATTDRO 22:06 → 3ANU 23:08
PROVIDERS: ADMIT Internal Medicine; ATTEND Internal Medicine